=== PATIENT | male | born 1935 | race Caucasian/White ===

== ENCOUNTER 2018-03-11 07:26 | Emergency (ER) | payer MEDICARE ==
[2018-03-11] MEDS ORDERED: Ibuprofen 400 MG Tab PO ONE (07:48)
--- NOTE | 2018-03-11 07:51 | EDM.PDOC ---
ED HPI GENERAL MEDICAL PROBLEM - General Chief Complaint: Upper Extremity Injury/Pain Stated Complaint: MEDICAL VIA [facility] Time Seen by Provider: 03/11/18 07:49 Source of Information: Reports: Patient History Limitations: Reports: No Limitations - History of Present Illness INITIAL COMMENTS - FREE TEXT/NARRATIVE: pt lives [place] HE WENT IN THE BR AND SLIPPED ON THE FLOOR. hE HIT HIS LEFT SHOULDER Onset: Today, Sudden Duration: Hour(s): Location: Reports: Upper Extremity, Left Associated Symptoms: Reports: No Other Symptoms Left Shoulder Pain Score (Numeric/FACES): 6 - Related Data Allergies Allergy/AdvReac Type Severity Reaction Status Date / Time No Known Allergies Allergy Verified 03/11/18 07:33 Home Meds: Home Meds NK [No Known Home Meds] 03/11/18 [History] Past Medical History Musculoskeletal History: Reports: Fracture - Infectious Disease History Infectious Disease History: Reports: Chicken Pox, Measles, Mumps Social & Family History - Tobacco Use Smoking Status *Q: Never Smoker - Caffeine Use Caffeine Use: Reports: Coffee - Recreational Drug Use Recreational Drug Use: No Review of Systems - Review of Systems Review Of Systems: See Below Constitutional: Reports: No Symptoms Eyes: Reports: No Symptoms Ears: Reports: No Symptoms Nose: Reports: No Symptoms Mouth/Throat: Reports: No Symptoms Respiratory: Reports: No Symptoms Cardiovascular: Reports: No Symptoms GI/Abdominal: Reports: No Symptoms Genitourinary: Reports: No Symptoms Musculoskeletal: Reports: Other (PAIN INB THE LEFT SHOULDER) Skin: Reports: No Symptoms ED EXAM, GENERAL - Physical Exam Exam: See Below Free Text/Narrative:: pt landed on his left shoulder and is having a fair amount of pain when he moves his arm. He Has minimal swelling and the shoulder does not appear deformed. Exam Limited By: No Limitations General Appearance: Alert, Moderate Distress, Other (pupils equal and reactive. ) Ears: Normal TMs Nose: Normal Inspection Throat/Mouth: Normal Inspection Head: Atraumatic Neck: Normal Inspection Respiratory/Chest: No Respiratory Distress Cardiovascular: Regular Rate, Rhythm GI/Abdominal: Soft, Non-Tender (Male) Exam: Deferred Rectal (Males) Exam: Deferred Back Exam: Normal Inspection Extremities: Other (pain with movement of the left shoulder. He has minimal deformioty. ) Neurological: Alert, Oriented, Normal Cognition Psychiatric: Normal Affect Course - Vital Signs Last Recorded V/S: Last Vital Signs Temp 35.9 C 03/11/18 07:41 Pulse 89 03/11/18 07:41 Resp 16 03/11/18 07:41 BP 160/84 H 03/11/18 07:41 Pulse Ox 97 03/11/18 07:41 - Orders/Labs/Meds Orders: Active Orders 24 hr Category Date Time Status Humerus Lt [CR] Stat Exams 03/11/18 07:46 Taken Shoulder Comp Lt [CR] Stat Exams 03/11/18 07:46 Taken Meds: Medications Discontinued Medications Generic Name Dose Route Start Last Admin Trade Name Freq PRN Reason Stop Dose Admin Ibuprofen 400 mg 03/11/18 07:48 03/11/18 08:16 Motrin PO 03/11/18 07:49 400 mg ONETIME ONE Administration - Re-Assessments/Exams Free Text/Narrative Re-Assessment/Exam: 03/11/18 08:45 pt was given motrin 400mg and he had xrays of the shoulder which revealed chronic changes but no acute fracture. Departure - Departure Time of Disposition: 08:46 Disposition: Home, Self-Care 01 Condition: Fair Clinical Impression: Contusion of left shoulder - Discharge Information Referrals: PCP,None [Primary Care Provider] - Forms: ED Department Discharge Care Plan Goals: sling for the next 2-3 days. after that start range of motion. Motrin 400-600 mg q6h prn for pain. cool pack for the next 24 hours. - My Orders Last 24 Hours: My Active Orders 03/11/18 07:46 Humerus Lt [CR] Stat Shoulder Comp Lt [CR] Stat - Assessment/Plan Last 24 Hours: My Active Orders 03/11/18 07:46 Humerus Lt [CR] Stat Shoulder Comp Lt [CR] Stat
--- NOTE | 2018-03-11 08:47 | CR ---
Humerus Lt CLINICAL HISTORY: Left humerus pain, trauma FINDINGS: There is no acute fracture within the humerus. There are degenerative changes in the gleno humeral joint and elbow IMPRESSION: No fracture Degenerative changes in the shoulder and elbow.
--- NOTE | 2018-03-11 08:47 | CR ---
Shoulder Comp Lt CLINICAL HISTORY: ] Left shoulder pain FINDINGS: There is no acute fracture or dislocation in the right shoulder. There is some mild deformi ty of the superior lateral humeral head which may be from previous injury there is periarticular spur ring in the glenohumeral joint. There appears to be some soft tissue swelling over the deltoid. 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
== END 2018-03-11 09:10 | disposition home or self-care (01) ==
LOC: JP.ED 07:26
DX: S40.012A Contusion of left shoulder, initial encounter (principal); W01.0XXA Fall on same level from slipping, tripping and stumbling without subsequent striking against object, initial encounter
CPT/HCPCS: 73030; 73060; 99284; A9270